=== PATIENT | male | born 1980 | race Two or more races ===

== ENCOUNTER 2025-02-04 09:08 | Emergency (ER) | payer OTHER ==
[~2025-02-04] VITALS: Ht 180.3 cm; Wt 79.5 kg
[2025-02-04 09:12] VITALS: TEMP 98.1
[2025-02-04 09:17] VITALS: BP 151/83; PULSE 97; RESP 18; O2SAT 99
[2025-02-04] MEDS: CYCLOBENZAPRINE HCL 10 MG TABLET PO ONE (09:30)
[2025-02-04] MEDS: IBUPROFEN 600 MG TABLET PO ONE (09:30)
[2025-02-04] MEDS ORDERED: IBUP-1492 PO (09:38)
[2025-02-04] MEDS ORDERED: CYCL-448 PO (09:38)
== END 2025-02-04 09:56 | disposition home or self-care (01) ==
LOC: EMS 09:09
DX: S39.012A Strain of muscle, fascia and tendon of lower back, initial encounter (principal); V89.2XXA Person injured in unspecified motor-vehicle accident, traffic, initial encounter; Y93.89 Activity, other specified; Y92.89 Other specified places as the place of occurrence of the external cause; Y99.8 Other external cause status
CPT/HCPCS: 99283